=== PATIENT | female | born 1960 | race Caucasian/White ===

== ENCOUNTER 2018-01-16 20:16 | Emergency (ER) | payer MEDICARE, MEDICAID ==
[~2018-01-16] VITALS: Ht 172.7 cm; Wt 47.2 kg
--- NOTE | 2018-01-16 20:30 | NUR ---
PT TO ER RM-2A [facility] FROM [facility]. DR MONSIVAIS CAME & SEEN PT.
[2018-01-16] MEDS ORDERED: GABA-534 PO (20:35)
[2018-01-16] MEDS ORDERED: RIVA10TA PO (20:35)
[2018-01-16] MEDS ORDERED: CRAN3875 PO (20:35)
[2018-01-16] MEDS ORDERED: LACT10SO PO (20:35)
[2018-01-16] MEDS ORDERED: DOCU100C36 PO (20:35)
[2018-01-16] MEDS ORDERED: MELA3TAB PO (20:35)
[2018-01-16] MEDS ORDERED: ACET-2154 PO (20:35)
[2018-01-16] MEDS ORDERED: ASCO500T10 PO (20:35)
[2018-01-16] MEDS ORDERED: CRAN450T3 PO (20:35)
[2018-01-16] MEDS ORDERED: SACC250C PO (20:35)
[2018-01-16] MEDS ORDERED: ESTR-8 PO (20:35)
[2018-01-16] MEDS ORDERED: OXYC-133 PO (20:35)
[2018-01-16] MEDS ORDERED: DIAZ10TA4 PO (20:35)
[2018-01-16 20:49] LABS: *BILIRUBIN,URIN NEGATIVE (NEGATIVE); *BLOOD, URINE NEGATIVE (NEGATIVE); *CLARITY,URINE CLEAR (CLEAR); *COLOR,URINE YELLOW (YELLOW); *KETONES,URINE NEGATIVE (NEGATIVE); *PROTEIN,URINE NEGATIVE (NEGATIVE); *UROBILINOGEN,URINE 0.2 E.U./dl (NORMAL); LEUKOCYTE ESTERASE ,URINE NEGATIVE (NEGATIVE); NITRITE, URINE NEGATIVE (NEGATIVE); PH,URINE 6.5 (5.0-8.0); UGLUCOSE NEGATIVE (NEGATIVE)
[2018-01-16 20:58] LABS: WBC,URINE NONE SEEN /HPF (0-3)
[2018-01-16 20:59] LABS: SQUAMOUS EPITHELIAL CELL,UR FEW /HPF (NONE SEEN)
[2018-01-16] MEDS ORDERED: OXYCODONE/APAP 5-325 MG TABLET PO ONE (21:00)
[2018-01-16 21:03] LABS: *AMPHETAMINE, URINE NEGATIVE (NEGATIVE); *BARBITURATE, URINE NEGATIVE (NEGATIVE); *CANNABINOID, URINE NEGATIVE (NEGATIVE); *COCCAINE, URINE NEGATIVE (NEGATIVE); *OPIATE, URINE NEGATIVE (NEGATIVE); *PHENCYCLIDINE SCREEN,URINE NEGATIVE (NEGATIVE)
[2018-01-16 21:07] LABS: BASOPHILS % (AUTO) 0.2 % (0.0-2.0); EOSINOPHILS # (AUTO) 0.1 K/uL (0.0-0.7); EOSINOPHILS % (AUTO) 2.2 % (0.0-7.0); HEMATOCRIT 38.8 % (31.2-41.9); HEMOGLOBIN 13.1 g/dL (10.9-14.3); LYMPHOCYTES # (AUTO) 4.1 K/uL (20.0-40.0); LYMPHOCYTES % (AUTO) 61.9 % (20.5-51.5); MEAN CORPUSCULAR HEMOGLOBIN 31.3 uug (24.7-32.8); MEAN CORPUSCULAR HGB CONC 34 g/dL (32.3-35.6); MEAN CORPUSCULAR VOLUME 92.7 fL (75.5-95.3); MONOCYTES # (AUTO) 0.4 K/uL (2.0-10.0); NEUTROPHILS % (AUTO) 29.7 % (38.5-71.5); PLATELET COUNT (AUTO) 341 K/uL (179-408); RED BLOOD CELL COUNT(AUTO) 4.18 MIL/uL (3.63-4.92); WHITE BLOOD COUNT (AUTO) 6.6 K/uL (3.8-11.8)
--- NOTE | 2018-01-16 21:10 | NUR ---
CT OF HEAD DONE, PT BACK TO .
[2018-01-16 21:14] LABS: CARBON DIOXIDE 26 mmol/L (21-32); CHLORIDE 103 mmol/L (98-107); CREATININE 0.9 mg/dL (0.6-1.3); GLUCOSE 80 mg/dL (74-106); POTASSIUM 3.7 mmol/L (3.5-5.1); UREA NITROGEN, BLOOD 9 mg/dL (7-18)
[2018-01-16 21:20] LABS: ALANINE AMINOTRANSFERASE 45 U/L (14-59); ALKALINE PHOSPHATASE 57 U/L (50-136); ASPARTATE AMINOTRANSFERASE 30 U/L (15-37); BILIRUBIN,DIRECT 0.1 mg/dL (0.0-0.2); BILIRUBIN,TOTAL 0.3 mg/dL (0.2-1.0)
[2018-01-16 21:21] LABS: ETHANOL < 3 MG/DL (0-0)
[2018-01-16 21:22] LABS: ACETAMINOPHEN < 2.0 ug/mL (10-30)
[2018-01-16 21:28] LABS: THYROID STIMULATING HORMONE 1.653 mIU/mL (0.358-3.740)
[2018-01-16 21:39] LABS: BAND % (MANUAL) 1 % (0-10); EOSINOPHILS % (MANUAL) 2 % (0-8); MONOCYTES % (MANUAL) 5 % (2-10); NEUTROPHILS % (MANUAL) 31 % (42-75)
[2018-01-16 21:40] LABS: LYMPHOCYTES % (MANUAL) 61 % (20-40)
--- NOTE | 2018-01-16 21:56 | NUR ---
[facility]
[2018-01-16] MEDS ORDERED: OXYCODONE/APAP 5-325 MG TABLET ONE (21:57)
[2018-01-16] MEDS ORDERED: ONDANSETRON ODT 4 MG TAB.RAPDIS SL PRN (22:30)
[2018-01-16] MEDS ORDERED: MAGNESIUM HYDROXIDE 30 ML LIQUID UDC PO PRN (22:30)
[2018-01-16] MEDS ORDERED: ACETAMINOPHEN 325 MG TABLET PO PRN (22:30)
[2018-01-16] MEDS ORDERED: DOCUSATE SODIUM 100 MG CAPSULE PO PRN (22:30)
[2018-01-16] MEDS ORDERED: HYDROCODONE/APAP 5-325MG TABLET PO PRN (22:30)
--- NOTE | 2018-01-16 22:35 | NUR ---
DYLAN CAME IN & EVALUATED PT.
[2018-01-16] MEDS ORDERED: OXYCODONE/APAP 5-325 MG TABLET PO PRN ×2 (23:00)
--- NOTE | 2018-01-16 23:03 | NUR ---
Spoke to Beverley , BLS picker feeder to SNF return , ETA is [phone]
--- NOTE | 2018-01-16 23:06 | NUR ---
report given to [facility], patient cleared to return back to SNF per Charge nurse.
--- NOTE | 2018-01-17 00:03 | NUR ---
pATIENT PICKED UP BY [id number], BLS TRANSPORT. Patient discharged to home in stable conditon. Written and verbal after care instructions given. Patient verbalizes understanding of instructions. PATIENT DISCHARGED TO [facility] . ALL BELONGINGS WITH PATIENT. VSS
[2018-01-17 00:05] VITALS: BP 137/69
[2018-01-17] MEDS ORDERED: GABAPENTIN 300 MG CAPSULE PO SCH (06:00)
[2018-01-17] MEDS ORDERED: PANTOPRAZOLE SODIUM 40 MG TABLET.DR PO SCH (07:00)
[2018-01-17] MEDS ORDERED: DIAZEPAM 10 MG TABLET PO SCH (09:00)
[2018-01-17] MEDS ORDERED: RIVAROXABAN 10 MG TABLET PO SCH (09:00)
[2018-01-17] MEDS ORDERED: ASCORBIC ACID 500 MG TABLET PO SCH (09:00)
[2018-01-17] MEDS ORDERED: [UNRECOGNIZED DRUG - OTHER] PO SCH (09:00)
[2018-01-17] MEDS ORDERED: Medication Not On Formulary EA (Cranberry Extract (Cranberry) 450 MG) PO SCH (09:00)
[2018-01-17] MEDS ORDERED: Medication Not On Formulary EA (Saccharomyces Boulardii (Florastor) 250 MG) PO SCH (09:00)
[2018-01-17] MEDS ORDERED: LACTULOSE PO SCH (09:00)
[2018-01-17] MEDS ORDERED: DOCUSATE SODIUM 100 MG CAPSULE PO SCH (09:00)
== END 2018-01-17 00:06 | disposition home or self-care (01) ==
LOC: ER 20:21
DX: Z04.6 Encounter for general psychiatric examination, requested by authority (principal); G89.4 Chronic pain syndrome; F41.9 Anxiety disorder, unspecified; J44.9 Chronic obstructive pulmonary disease, unspecified; F32.9 Major depressive disorder, single episode, unspecified; K21.9 Gastro-esophageal reflux disease without esophagitis; F20.9 Schizophrenia, unspecified; F17.200 Nicotine dependence, unspecified, uncomplicated; Z88.5 Allergy status to narcotic agent; Z90.49 Acquired absence of other specified parts of digestive tract
CPT/HCPCS: 36415; 70450; 80048; 80076; 80307; 81001; 84443; 85025; 93005; 99285; G0480 ×2; G0481; A4663